=== PATIENT | male | born 1975 | race Caucasian/White ===

== ENCOUNTER → 2018-06-21 16:22 | Outpatient (CLI) | payer OTHER, SELFPAY | PROVIDERS: Visit Provider Family Medicine | DX: N52.9 Male erectile dysfunction, unspecified (principal); R53.83 Other fatigue | CPT/HCPCS: 36415; 84403 ==

== ENCOUNTER → 2020-12-19 13:18 | Outpatient (CLI) | payer OTHER, SELFPAY ==
[2020-12-19 13:53] LABS: COVID19 -Nasal RAPID POSITIVE (Negative)
== END ==
PROVIDERS: Visit Provider Nurse Practitioner Family
DX: U07.1 COVID-19 (principal)
CPT/HCPCS: 87635